=== PATIENT | female | born 1945 | race Caucasian/White ===

== ENCOUNTER → 2018-04-08 | Outpatient (CLI) | payer OTHER | END | disposition home or self-care (01) | LOC: C.RDSM 11:38 | PROVIDERS: ATTEND Physical Medicine & Rehabilitation Sports Medicine | DX: M25.561 Pain in right knee (principal); M25.562 Pain in left knee ==

== ENCOUNTER 2021-12-07 06:44 | Observation (INO) ==
--- NOTE | 2021-11-21 13:15 | PAT Medication Instructions ---
Medication Instructions Date of Service November 21, 2021 Home Medications cholecalciferol (vitamin D3) 25 mcg (1,000 unit) tablet (Vitamin D3) 25 mcg PO QPM cyanocobalamin (vitamin B-12) 1,000 mcg tablet 1,000 mcg PO QPM Take evening before surgery cholecalciferol (vitamin D3) 25 mcg (1,000 unit) tablet (Vitamin D3) 25 mcg PO QPM cyanocobalamin (vitamin B-12) 1,000 mcg tablet 1,000 mcg PO QPM Other Notes NOTHING TO EAT OR DRINK AFTER MIDNIGHT. If you have any questions please call us at [phone] or [phone] or [phone] or [phone]
--- NOTE | 2021-11-25 11:25 | Anesthesiology Consultation ---
Date of Service November 25, 2021 Assessment & Plan (1) Encounter for pre-operative examination: - Patient acceptable risk for surgery pending surgeon-ordered PCP preop evaluation ([facility] [place]; 11/29). - COVID screening: Per assessment on 11/25: Travel screen negative, no known COVID-19 positive contacts. Patient was Covid positive 09/29/21 (scanned in from [facility]) > symptoms at time: fatigue > resolved. Surgeon arranging preop COVID testing (scheduled 12/05; [place]). Awaiting results. Chart Review Chart Review: Patient seen in Pre Admission Testing Teaching & Discussion Pre-Anesthesia Teaching/Discussion Notes: Instructed NPO after midnight before surgery,except medications with 15 cc of water. Medication instructions provided according to the PAT guidelines. History Surgery Operation Date: 12/07/21 09:20 Proposed Procedures p Right Total Knee Arthroplasty - Jayro Flower MD Height/Weight Height: 5 ft 9 in Weight: 65.1 kg Allergies Allergy/AdvReac Type Severity Reaction Status Date / Time onion Allergy Severe Anaphylaxis Verified 11/21/21 11:09 Medications Home Medications Medication Instructions Recorded Confirmed Last Taken cholecalciferol (vitamin D3) 25 25 mcg PO QPM 11/21/21 11/21/21 Unknown mcg (1,000 unit) tablet (Vitamin D3) cyanocobalamin (vitamin B-12) 1,000 mcg PO QPM 11/21/21 11/21/21 Unknown 1,000 mcg tablet Past Medical History Medical History Arthritis Bladder prolapse History of COVID-19 Dx 09/29/21 (scanned in from [facility]) > symptoms at time: fatigue > resolved Presence of pessary Exercise / Class Metabolic Activity II 4-5 Yardwork/Stairs/Walk up hill (one FS (no CP, no SOB)) Past Family History Family History Mother Family history of diabetes mellitus Father Family history of diabetes mellitus Other No family history of adverse response to anesthesia Past Surgical History Surgical History H/O knee surgery LEFT History of cataract surgery RT/LEFT History of colon resection r/t complication during hysterectomy History of colonoscopy History of hysterectomy Past Anesthesia History No Hx of Anesthesia Complications and No Family Hx of Anesthesia Complications History of PONV No Hx of PONV and No Hx of Motion Sickness Social History Smoking Status: Former smoker tobacco type: cigarettes Do You Dip or Chew Tobacco: No Smoking End Date: Quit 1970 Hx Alcohol Use: No Hx Substance Use: No substance use type: does not use Review of Systems Patient denies chest pain, shortness of breath, dyspnea on exertion, fever, chills, cough, wheezing, palpitations. Physical Exam Vital Signs VITALS BP 145/81 P 60 TEMP 98.4 SP02 98%RA RESP 16 PHYSICAL Full cervical extension range of motion. Full TMJ range of motion. TMD 2.5 finger breaths (small chin) Mallampati Score 2 Dentition: intact, root canal repair on molar Lungs: clear throughout to auscultation Cardiac: regular rate and rhythm, no murmurs noted Spine: normal Carotid arteries: negative bruit Extremities: no edema Lab Results Anesthesia Preop Results Results Anesthesia Widget: WBC 4.51 K/uL (4.8-10.8) L 11/25/21 Hgb 13.5 g/dL (12.0-16.0) 11/25/21 Hct 41.1 % (37-47) 11/25/21 Plt 185 K/uL (130-400) 11/25/21 Na 140 mmol/L (136-145) 11/25/21 K 4.5 mmol/L (3.5-5.1) 11/25/21 Cl 105 mmol/L (98-107) 11/25/21 CO2 30 mmol/L (21-32) 11/25/21 BUN 13 mg/dl (6-23) 11/25/21 Creat 0.49 mg/dl (0.6-1.2) L 11/25/21 Glucose Level 100 mg/dl (70-99(Fasting)) H 11/25/21 PT 10.5 Seconds (9.0-12.0) 11/25/21 PTT 29.6 Seconds (21.0-31.0) 11/25/21 INR 1.0 (0.9-1.1) 11/25/21 Urine Color Dark Yellow 11/25/21 Urine Appearance Clear (Clear) 11/25/21 Urine pH 5.0 (4.5-7.5) 11/25/21 Urine Specific [place] 1.029 (1.000-1.030) 11/25/21 Urine Protein Negative (Negative) 11/25/21 Urine Glucose (UA) Negative (Negative) 11/25/21 Urine Ketones Trace (Negative) H 11/25/21 Urine Blood Trace (Negative) H 11/25/21 Urine Nitrite Negative (Negative) 11/25/21 Urine Bilirubin Negative (Negative) 11/25/21 Urine Urobilinogen Negative (Negative) 11/25/21 Urine Leukocyte Esterase 1+ (Negative) H 11/25/21 Urine WBC (Auto) 10-30 /hpf (0-5) H 11/25/21 Urine RBC (Auto) 0-4 /hpf (0-4) 11/25/21 Urine Hyaline Casts (Auto) 1-5 /lpf (0-5) 11/25/21 Urine Epithelial Cells (Auto) >30 /lpf (0-5) H 11/25/21 Urine Bacteria (Auto) 1+ (Negative) H 11/25/21 Urine Yeast Budding (None Prsent) A 11/25/21 Blood Type B Positive 11/25/21 Antibody Screen NEGATIVE 11/25/21 Lab Comments: Surgeon's office made aware of abnormal UA. Testing Electrocardiogram Date: 11/25/21 SB at 56bpm. NS STA. 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 Chest X-Ray Date: 11/25/21 FINDINGS: The lungs are clear. No pleural effusions. No pneumothorax. The heart is normal in size. There is a mildly tortuous thoracic aorta. Moderate right and mild left glenohumeral joint osteoarthritis. Mild to moderate degenerative changes within the thoracic spine. IMPRESSION: No acute process. Stress Test Date: 12/25/16 Type: exercise Stress echocardiogram is normal without resting LV wall motion abnormalities or inducible ischemia. Exercise EKG equivocal for ischemia. 3.1 METS. 99% MPHR. The low workload achieved reduces the sensitivity of the test for detection of coronary artery disease or ischemia. LVEF 60%. No significant valvular disease.
--- NOTE | 2021-11-28 06:37 | History & Physical Report ---
Date of Service November 28, 2021 Assessment & Plan (1) Right knee DJD: Plan: Postoperative prescriptions for Coumadin and Percocet will be provided at discharge from the hospital. Anticipate discharge to home with home health services. The patient is aware of the COVID-19 risks associated with surgery. She is currently asymptomatic of any COVID-19 symptoms. She will obtain nasal swab testing on the Sunday prior to surgery. PDMP was checked and there are no concerning findings. Prescription was provided for a rolling walker. She will meet with PAT today for her preoperative lab work, EKG, and chest x-ray. She has an appointment to see her PCP for medical clearance on Sunday. History of Present Illness Chief Complaint: Right knee pain Primary Care Provider: NO PCP This 76-year-old female presents with her , for her preoperative history and physical. She is scheduled to undergo a right knee total knee arthroplasty on 12/07/2021. The patient has had bilateral knee pain for years, right greater than left. Worse with use. Worse with weightbearing. It is affecting her ADLs. She denies any catching or locking. She does have loss of motion. She has tried conservative care measures including activity modification, oral medications, and assistive devices without improvement. She elects to proceed with surgical intervention in hopes of improving her function. Preoperative imaging has been obtained. Allergies Allergy/AdvReac Type Severity Reaction Status Date / Time onion Allergy Severe Anaphylaxis Verified 11/21/21 11:09 Home Medications Medication Instructions Recorded Confirmed Type cholecalciferol (vitamin D3) 25 25 mcg PO QPM 11/21/21 11/21/21 History mcg (1,000 unit) tablet (Vitamin D3) cyanocobalamin (vitamin B-12) 1,000 mcg PO QPM 11/21/21 11/21/21 History 1,000 mcg tablet Past Med/Surg History Medical History (Updated 11/28/21 @ 06:36 by Denny Valdez PA-C) Arthritis Bladder prolapse History of COVID-19 Dx 09/29/21 (scanned in from [facility]) > symptoms at time: fatigue > resolved Kidney stones Presence of pessary Surgical History H/O knee surgery LEFT History of cataract surgery RT/LEFT History of colon resection r/t complication during hysterectomy History of colonoscopy History of hysterectomy Family History Mother Family history of diabetes mellitus Father Family history of diabetes mellitus Other No family history of adverse response to anesthesia Social History (Updated 11/28/21 @ 06:35 by Denny Valdez PA-C) Smoking Status: Former smoker Second Hand Exposure: Yes ( A CHILD); Hx Alcohol Use: No Hx Substance Use: No Preferred Language: Guyanese Hearing Ability: Normal Composition Roll Maker And Cutter Required: No Beliefs That Will Affect Care: None marital status: Current Living Situation: Family Current Living Situation Comment: >RAISING 2 GRANDKIDS current occupational status: retired Feels Safe at Home: Yes Assistive Devices: Glasses and Hearing Aid - Bilateral Review of Systems Review of Systems: All systems reviewed & are unremarkable except as noted in HPI & below A total of 10 systems were reviewed. Physical Exam Physical Exam: Vitals: Height 159 cm, weight 65.6 kilograms, BMI 26, BP 128/82, pulse 62, O2 sat 98% on room air. General: Well-developed, well-nourished, elderly white female in no acute distress. Sitting in a chair. Alert and oriented. Skin: Warm and dry with good turgor. No rashes or lesions. No ecchymosis or erythema. No intraarticular effusion. HEENT: Normocephalic, atraumatic. Eyes: PERRLA, EOMI. Nares and oropharynx exams deferred due to COVID precautions. Heart: RRR. No MGR. Lungs: Clear to auscultation bilaterally. No crackles, rhonchi or wheezing. Good air movement. Abdomen: Bowel sounds present x4, soft, nontender. No organomegaly. No masses. Mildly obese. Musculoskeletal: Right knee evaluation reveals varus deformity. She lacks about 5 degrees of terminal extension. Flexion to 90 degrees only. Strength is 5/5 with fair quad tone. No defect in the patellar tendon or quadriceps tendon. She has focal discomfort with palpation over the medial and lateral joint lines. Her worst pain is posteriorly. Ambulating today with a slightly antalgic gait. Neurologic: Gross sensation is intact across both lower extremities by soft touch. Peripheral pulses are 2+. Results & Data Results & Data ([facility]) Diagnostic Findings Radiographic imaging previously obtained shows end-stage DJD of both knees. She is [id number] in all compartments. It is severely degenerated. Periarticular osteophytes, subchondral sclerosis, and joint space narrowing are all evident. Code Status & VTE Plan VTE Prophylaxis Plan VTE Prophylaxis will be ordered: Yes
--- NOTE | 2021-12-07 06:22 | History & Physical Bridge Note ---
Date of Service December 07, 2021 History & Physical Bridge Note I have examined the patient, reviewed the History & Physical and in the interval since the performance of the History & Physical I have noted the following changes of clinical significance:consent obtained/site verified/covid screen negative. no changes noted
[~2021-12-07 06:44] MED LIST: BUPIVACAINE 0.5 % 5 MG/1 ML PF 10ML VIAL ONE; EPINEPHrine INJ 1 MG/ML AMP ONE; LR 500ML BOLUS, THEN 15ML/HR IV SCH; LR 60ML/HR IV SCH; ROPIVACAINE 0.5% 5 MG/ML 30 ML VIAL ONE; ROPIVACAINE 0.5% HCL/PF 150 MG, BUPIVACAINE 0.75% MPF 20 ML, EPINEPHrine 0.15 MG, Ketor... INFIL SCH; TRANEXAMIC ACID 1,000 MG **IV Pre-op IV SCH; ceFAZolin 2000MG 2,000 MG/15 ML SYR IV SCH
[2021-12-07] MEDS ORDERED: PROPOFOL IV EMULSION 10 MG/ML 20 ML VIAL IV ONE ×2 (07:37→10:29)
[2021-12-07] MEDS ORDERED: LIDOCAINE 2% 2 ML VIAL/AMP(20MG/ML) INFIL ONE (07:37)
[2021-12-07] MEDS ORDERED: MIDAZOLAM HCL 1 MG/ML 2ML VIAL ONE ×2 (07:38→09:33)
[2021-12-07] MEDS ORDERED: fentaNYL citrate 100 MCG/2 ML VIAL ONE (07:38)
[2021-12-07] MEDS ORDERED: ORTHO JOINT ANESTHETIC ONE (09:13)
[2021-12-07] MEDS ORDERED: DEXAMETHASONE SOD INJ 4 MG/ML VIAL ONE (09:40)
[2021-12-07] MEDS ORDERED: ONDANSETRON INJ 2 MG/ML 2 ML VIAL ONE (09:40)
--- NOTE | 2021-12-07 11:02 | Post Operative Brief Note ---
Immediate Post Op Note v1 Date of Surgery December 07, 2021 Pre & Post Diagnosis Operation Date: 12/07/21 08:50 Pre-Op Diagnosis: Right Knee Osteoarthritis Post-Op Diagnosis: Right Knee Osteoarthritis I identified the patient and participated in the time-out.: Yes Procedure Operation Date: 12/07/21 08:50 Actual Procedures p Right Total Knee Arthroplasty, Cemented(Right) - Jayro Flower MD Surgeon Jayro Flower MD Technology Resource Teacher Carlos Eduardo/José Miguel/Vincenzo Estimated Blood Loss 25 Findings Consistent with Post-Op Diagnosis
[2021-12-07] MEDS ORDERED: ePHEDrine sulfate 50 MG/ML AMP IV PRN (11:11)
[2021-12-07] MEDS ORDERED: ONDANSETRON INJ 2 MG/ML 2 ML VIAL IV PRN ×2 (11:11→12:22)
[2021-12-07] MEDS ORDERED: PROMETHAZINE HCL 12.5 MG in SODIUM CHLORIDE 0.9% 50 ML IV PRN (11:11)
[2021-12-07] MEDS ORDERED: NALOXONE HCL 0.4 MG/1 ML VIAL/CARP IV PRN ×2 (11:11→12:22)
[2021-12-07] MEDS ORDERED: FLUMAZENIL 0.1 MG/1 ML 10 ML VIAL IV PRN (11:11)
[2021-12-07] MEDS ORDERED: HYDROmorphone INJ 1 MG/ML SYRINGE IV PRN (11:11)
[2021-12-07] MEDS ORDERED: fentaNYL citrate 100 MCG/2 ML VIAL IV PRN (11:11)
[2021-12-07] MEDS ORDERED: ATROPINE SULFATE 0.1 MG/ML 10ML SYR IV PRN (11:11)
--- NOTE | 2021-12-07 11:14 | Operative Report ---
Post Operative Report Pre & Post Diagnosis Operation Date: 12/07/21 08:50 Pre-Op Diagnosis: Right Knee Osteoarthritis Post-Op Diagnosis: Right Knee Osteoarthritis I identified the patient and participated in the time-out.: Yes Procedure Operation Date: 12/07/21 08:50 Actual Procedures p Right Total Knee Arthroplasty, Cemented(Right) - Jayro Flower MD Surgeon DANIEL Flower MD Heel Sander Rubber Carlos Eduardo/José Miguel/Vincenzo Estimated Blood Loss 25 Findings Consistent with Post-Op Diagnosis See operative report Specimens See operative report Drains None Complications none Disposition Accompanied Patient To Recovery: Yes Indications This 76-year-old female presented to the office with complaints of persisting right knee pain. She had tried conservative care measures without improvement. She elected to proceed with surgical intervention after being educated about potential risks and outcomes. Preoperative imaging was obtained. Description of Procedure Patient was administered a spinal anesthetic and then taken to the operating room where she was given sedation. She was prepped and draped in the usual sterile fashion. Please see Dr. Flower's operative report for specifics of the procedure. I was present for the entire case for initial patient positioning through final wound closure. Assistance was provided in tissue retraction, hemostasis, trial implant placement, final implant placement, and final wound closure. Patient was taken to the recovery room in satisfactory condition. I attest to the content of the Intraoperative Record and any orders documented therein. Any exceptions are noted below.
--- NOTE | 2021-12-07 11:14 | Operative Report ---
Post Operative Report Pre & Post Diagnosis Operation Date: 12/07/21 08:50 Pre-Op Diagnosis: Right Knee Osteoarthritis Post-Op Diagnosis: Right Knee Osteoarthritis I identified the patient and participated in the time-out.: Yes Procedure Operation Date: 12/07/21 08:50 Actual Procedures p Right Total Knee Arthroplasty, Cemented(Right) - Jayro Flower MD Surgeon Erum Flower MD Scout Sniper Carlos Eduardo/José Miguel/Vincenzo Estimated Blood Loss 25 Findings Consistent with Post-Op Diagnosis Consistent with post op findings Specimens No specimens Description of Procedure I participated in prepping dressing and assisted Dr. Flower during the procedure. Please see Dr. Flower note. I attest to the content of the Intraoperative Record and any orders documented therein. Any exceptions are noted below. Supervising Physician Co-Signing Physician Notes Dr. Flower
--- NOTE | 2021-12-07 11:14 | Operative Report ---
Post Operative Report Pre & Post Diagnosis Operation Date: 12/07/21 08:50 Pre-Op Diagnosis: Right Knee Osteoarthritis Post-Op Diagnosis: Right Knee Osteoarthritis I identified the patient and participated in the time-out.: Yes Procedure Operation Date: 12/07/21 08:50 Actual Procedures p Right Total Knee Arthroplasty, Cemented(Right) - Jayro Flower MD Surgeon Jayro Flower MD Hedis Abstractor Carlos Eduardo/José Miguel/Vincenzo Estimated Blood Loss 25 Findings Consistent with Post-Op Diagnosis Severe DJD varus deformity and flexion loss Fluids Per anesthesia Specimens Bone trimmings Drains None Anesthesia Type Spinal Complications None Indications 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 the right lower extremity was prepped and draped usual routine fashion. To urniquet was inflated 275 mmHg after the exsanguination all of the limb for a total of 53 minutes. Midline exposure utilized parapatellar arthrotomy performed. Synovectomy completed large osteophytes resected. The bone was soft. There was a cyst on the distal femur. This was noted at the time of the distal femoral anterior cut. Proximal tibia was then subluxated cruciates resected menisci resected the tibia was then resected 4 mm off the medial side. It was sized to a 3. Femur was sized between a 4 and a 3 was measured 4 and cut 3 to prevent overstuffing and minimize any notching and then the area of the cyst was noted. The extension gap was excellent. Flexion gap was excellent. The distal femur was cut 12 mm. Once the flexion extension gaps were noted to be excellent box cut was made and the size 3 fit well. The thickness of the size 3 and with a 12-1/2 spacer was excellent midrange stability no loss of extension and full flexion. Should be mentioned her preoperative range of motion was from near 0 to 85 degrees. There was a hard endpoint. This was all much improved. The patella was then resected leaving 14 mm and a 38 trial seated. It tracked well. Ortho mix was then injected all about the knee. The permanent implants were then cemented after the knee was irrigated with Betadine Pulsavac and the tibia femur and patella were then cemented in that order. After 12 minutes the tourniquet was deflated minor bleeding points controlled electrocautery. After 14 minutes the knee was inspected no cement removal was required. It was irrigated with Pulsavac and Betadine 1 final time department liner seated the knee reduced and closed the patella tracked well. It was closed in 30 degrees of flexion with #2 Vicryl 2-0 Vicryl in status no clips appropriate dressing applied. Summary of implant size 3 femur posterior cruciate substituting size 3 mobile- bearing tray tibia size 38 patella 3 x 25 mm polyethylene insert posterior cruciate substituting. 2 bags of [place] G cement EBL was 25 cc crystalloid per anesthesia pathology pending on bone DVT prophylaxis per protocol. Patient was probably notified site verified antibiotics current is being given consent verified. All done before the procedure started. Dictated not read I attest to the content of the Intraoperative Record and any orders documented therein. Any exceptions are noted below.
--- NOTE | 2021-12-07 11:28 | Orthopedic Progress Note ---
Date of Service December 07, 2021 Assessment & Plan (1) Right knee DJD: Plan: Continue with care pathway discharge tomorrow. (2) Encounter for pre-operative examination: Plan: Continue wound care pathway discharge tomorrow. Subjective Doing well status post right total knee replacement denies chest pain shortness of breath fever chills nausea vomiting or headache. Physical Exam Musculoskeletal: Dressing clean dry and intact neurologic exam limited by spinal postop x-rays look excellent. Results & Data ([facility]) Vital Signs (Past 12 Hours) Vital Signs Temp Pulse Resp BP Pulse Ox 12/07/21 11:25 77 18 116/62 100 12/07/21 11:15 36.3 C L 77 18 120/56 L 100 12/07/21 07:16 36.6 C 76 18 147/82 H 95 Diagnostic Findings Postop x-rays look excellent. Cystic area filled with cement.
--- NOTE | 2021-12-07 11:34 | XRay Report ---
XR knee RT 1 or 2V routine CLINICAL HISTORY: S/P R TKA TECHNIQUE: 2 views of the right knee were obtained. Comparison: Comparison is made to right knee radiographs 10/26/2021 FINDINGS: Patient is status post total knee arthroplasty with expected postsurgical changes including soft tiss ue swelling, subcutaneous emphysema, and surgical staple placement. No periarticular lucency or hardw are fracture is seen. No joint effusion is seen. No soft tissue abnormality is seen. IMPRESSION: Expected postoperative appearance status post placement of total knee arthroplasty. ACT 112: Negative or not required by law. Electronically signed by: Eleno Arias M.D. 12/07/2021 11:32 AM
--- NOTE | 2021-12-07 12:05 | Anesthesiology Progress Note ---
Date of Service December 07, 2021 Anesthesia Post Procedure Vital Signs Vital Signs: Temp Pulse Resp BP Pulse Ox 12/07/21 11:55 36.4 C L 60 16 112/65 94 12/07/21 11:45 61 16 121/73 96 12/07/21 11:35 66 17 116/72 96 12/07/21 11:25 77 18 116/62 100 12/07/21 11:15 36.3 C L 77 18 120/56 L 100 12/07/21 07:16 36.6 C 76 18 147/82 H 95 Transfer of Care Handoff Completed per policy Notes Mental Status: alert / awake / arousable Patient Amnestic to Procedure: Yes Nausea / Vomiting: adequately controlled Pain: adequately controlled Airway Patency, RR, SpO2: stable & adequate BP & HR: stable & adequate Hydration State: stable & adequate Neuraxial Anesthesia: was administered and sensory block is resolving Anesthetic Complications: no major complications apparent
[2021-12-07] MEDS ORDERED: HYDROmorphone INJ 0.5 MG/0.5 ML SYR IV PRN (12:22)
[2021-12-07] MEDS ORDERED: METOCLOPRAMIDE HCL INJ 5 MG/ML 2 ML VIAL IV PRN (12:22)
[2021-12-07] MEDS ORDERED: SODIUM CHLORIDE 0.9% 1000ML 1,000 ML IV SCH (12:22)
[2021-12-07] MEDS ORDERED: MAGNESIUM HYDROXIDE SUSP 30 ML UDC PO PRN (12:22)
[2021-12-07] MEDS ORDERED: ALUMINUM/MAGNESIUM SUSP 30 ML UDC PO PRN (12:22)
[2021-12-07] MEDS ORDERED: bisacodyL 10 MG SUPP PR PRN (12:22)
[2021-12-07] MEDS ORDERED: diphenhydrAMINE 50 MG/ML VIAL IV PRN (12:22)
[2021-12-07] MEDS ORDERED: oxyCODONE HCL IR 5 MG TAB (IMMEDIATE RELEASE) PO PRN (12:22)
[2021-12-07] MEDS ORDERED: ORTHO WARFARIN NOMOGRAM SCH (14:00)
--- NOTE | 2021-12-07 15:23 | Discharge Summary (DS) ---
DATE OF ADMISSION: 12/07/2021. DATE OF DISCHARGE: 12/08/2021. CHIEF COMPLAINT: Right knee pain. HISTORY OF PRESENT ILLNESS: Underwent elective right total knee replacement. Hospital course has be en uneventful. At this point in time, she will be discharged tomorrow after PT/OT. PAST MEDICAL AND PAST SURGICAL HISTORY: Remarkable for bladder issues, arthritis, kidney stones, his tory of pessary use, multiple knee surgeries, colonoscopies, hysterectomies, colon resection. FAMILY HISTORY: Diabetes. SOCIAL HISTORY: Reveals former smoker secondhand exposure. Positive social alcohol. REVIEW OF SYSTEMS: Noncontributory. Postop x-rays look excellent. ASSESSMENT: Doing well status post right total knee replacement. Discharge to home. Additional med ications will be p.r.n. pain medication and blood thinner. Job ID: [id number]
--- NOTE | 2021-12-07 15:40 | Progress Notes ---
DATE OF SERVICE: 12/07/2021. Status post right knee replacement, doing well. Postop x-rays look excellent. Neurovascular check is wearing off with her spinal and is starting to move her legs. Dressing clean, dry and intact. Eating and drinking well. At this point in time, Hep-Lock IV and mobilize when her legs are finally fully awake. Use knee immo bilizer for gait. Job ID: [id number]
[2021-12-07] MEDS ORDERED: WARFARIN SOD 5 MG TAB PO SCH ×2 (16:00)
[2021-12-07] MEDS ORDERED: WARFARIN SOD 5 MG TAB PO ONE (16:00)
[2021-12-07] MEDS: KETOROLAC TROMETHAMINE 15 MG/ML VIAL IV SCH ×2 (16:34→21:36)
[2021-12-07] MEDS: ASCORBIC ACID 500 MG TAB PO SCH (16:34)
[2021-12-07] MEDS: FERROUS GLUCONATE 324 MG TAB PO SCH (16:34)
[2021-12-07] MEDS: ceFAZolin 2000MG 2,000 MG/15 ML SYR IV SCH (16:40)
[2021-12-07] MEDS ORDERED: TRANEXAMIC ACID / 0.7% NACL 1,000 MG/100 ML BAG IV SCH (17:00)
[2021-12-07] MEDS ORDERED: CYANOCOBALAMIN (B-12) 500 MCG TABLET PO SCH (21:00)
[2021-12-07] MEDS ORDERED: SENNA 8.6 MG TAB PO SCH (21:00)
[2021-12-07] MEDS ORDERED: CHOLECALCIFEROL 1,000 UNITS 25 MCG TAB PO SCH (21:00)
[2021-12-07] MEDS: DOCUSATE SODIUM 100 MG CAP PO SCH (21:37)
[2021-12-07] MEDS: ACETAMINOPHEN 500 MG TAB PO SCH (21:37)
[2021-12-08] MEDS: ceFAZolin 2000MG 2,000 MG/15 ML SYR IV SCH (00:44)
[2021-12-08] MEDS: KETOROLAC TROMETHAMINE 15 MG/ML VIAL IV SCH ×2 (03:24→11:34)
[2021-12-08] MEDS: ACETAMINOPHEN 500 MG TAB PO SCH (05:59)
--- NOTE | 2021-12-08 06:26 | Progress Notes ---
SUBJECTIVE: Has done very well status post right total knee replacement, is sitting up in bed, is mo ving well, has had a good night's sleep. She states she slept well. OBJECTIVE: Examination reveals neurovascular check femoral sciatic nerve to be normal. Wound dressi ng is clean, dry and intact. Can do a straight leg raise. LABORATORY DATA: A.m. labs are pending. ASSESSMENT AND PLAN: Doing well. Discharged home today. Blood thinner dose per nomogram. Follow u p in 2 weeks. Job ID: [id number]
[2021-12-08] MEDS: FERROUS GLUCONATE 324 MG TAB PO SCH (07:24)
[2021-12-08] MEDS: ASCORBIC ACID 500 MG TAB PO SCH (07:24)
[2021-12-08] MEDS: DOCUSATE SODIUM 100 MG CAP PO SCH (07:24)
[2021-12-08 07:25] LABS: Hematocrit (blood only) 33.1 % (37-47); Mean Corpuscular Hemoglobin 28.8 pg (25-34); Mean Corpuscular Hgb Conc 33.2 g/dL (32-36); Mean Corpuscular Volume 86.6 fL (80-100); Mean Platelet Volume 11.9 fL (7.4-10.4); Platelet Count 162 K/uL (130-400); RDW Standard Deviation 44.5 fL (36.4-46.3); Red Blood Count 3.82 M/uL (4.2-5.4); White Blood Count 8.99 K/uL (4.8-10.8)
[2021-12-08 07:42] LABS: BUN Creatinine Ratio 32.7 (10-20); Calcium 8.4 mg/dl (8.5-10.1); Creatinine Clr Calc Pharmacy 77.3 ml/min; Est GFR (African American) 107.1 ml/min; Est GFR (Non-African American) 92.4 ml/min; INR 1.1 (0.9-1.1); Potassium 4.1 mmol/L (3.5-5.1); Prothrombin Time 11.9 Seconds (9.0-12.0)
[2021-12-08] MEDS ORDERED: dexAMETHasone 10 MG in SYRINGE 0 ML IV SCH (08:00)
[2021-12-08] MEDS ORDERED: MULTIVITAMIN TAB PO SCH (09:00)
--- NOTE | 2021-12-08 09:32 | Orthopedic Progress Note ---
Date of Service December 08, 2021 Assessment & Plan (1) S/P total knee replacement using cement: Plan: Patient was seen in her room by me. Dressings were changed. ALEXANDRA hose were reapplied. She will take Coumadin 4 mg daily over the weekend and have her blood rechecked on Sunday. Today's dose will be given prior to departure. Continue using her walker. Continue using the knee immobilizer until Sunday morning, at which time it may be fully discontinued. Coumadin and Percocet prescriptions were sent to her pharmacy. Written discharge instructions were provided. Follow-up in the office in 2 weeks with me as scheduled for staple removal. Admission and Anticipated Discharge Date Admission Date: December 07, 2021 Subjective Patient was seen in her room this morning. She has already eaten breakfast. She states she did well overnight. She is having minimal knee pain at this point. She is waiting for therapy and feels ready for discharge to home. She denies any chest pain, shortness of breath, nausea, vomiting, or abdominal pain. She has been out of bed. Review of Systems Review of Systems: Unchanged from yesterday. Physical Exam Physical Exam: General: Well-developed, well-nourished, elderly female, in no acute distress. Sitting in bed. Alert and oriented. Skin: Warm dry with good turgor. No rashes. Patient has an intact postsurgical dressing on the right leg. Upon removal, there is scant dried blood on her dressings. No active bleeding. Expected postoperative edema. No ecchymosis. Musculoskeletal: Patient has intact motor function of her ankle and toes. She is able to set her quad and perform straight leg raise. She has full terminal extension. Flexion to around 50 degrees easily. Neurologic: Gross sensation is intact across all aspects of the right leg by soft touch. Peripheral pulses are 2+. Results & Data ([facility]) Vital Signs (Past 12 Hours) Vital Signs Temp Pulse Resp BP BP Pulse Ox 12/08/21 07:47 36.5 C 70 16 129/76 97 12/08/21 07:21 36.5 C 65 18 129/76 97 12/08/21 03:20 36.9 C 71 16 130/74 96 12/07/21 22:49 36.9 C 69 14 102/60 95 Laboratory Results H&H this morning are 11.0 and 33.1. White count of 8.99. INR is 1.1. C hemistry panel is unremarkable. Electrolytes are normal. BUN of 18. Creatinine of 0.55, which is consistent with her usual levels.
[2021-12-08] MEDS ORDERED: WARFARIN SOD 5 MG TAB PO ONE (09:51)
== END 2021-12-08 12:15 | disposition home health service (06) ==
LOC: 3E 06:44 → ASU 06:44

== ENCOUNTER 2022-06-28 08:15 | Observation (INO) ==
--- NOTE | 2022-04-11 14:53 | Anesthesiology Consultation ---
Date of Service April 11, 2022 Assessment & Plan (1) Encounter for pre-operative examination: Abnormal UA, new leukopenia. Pt acceptable to proceed per discussion with Nick Vieira with surgeon's office made aware. - COVID screening: Per garage attendant on 04/11/2022: Travel screen negative, no kno wn COVID-19 positive contacts or current COVID-19 related symptoms in past 2 weeks. Surgeon arranging preop COVID testing, scheduled 04/17/2022. Awaiting results. Chart Review Chart Review: Acceptable Risk for Surgery and Patient NOT seen in Pre Admission Testing History Surgery Operation Date: 04/19/22 07:00 Proposed Procedures p Left Total Knee Arthroplasty - Jayro Flower MD Height/Weight Height: 5 ft 3 in Weight: 61.235 kg Allergies Allergy/AdvReac Type Severity Reaction Status Date / Time onion Allergy Severe Anaphylaxis-RAW Verified 04/11/22 14:38 ONIONS Medications Home Medications Medication Instructions Recorded Confirmed Last Taken cholecalciferol (vitamin D3) 25 25 mcg PO QPM 11/21/21 04/11/22 12/06/21 16:00 mcg (1,000 unit) tablet (Vitamin D3) cyanocobalamin (vitamin B-12) 1,000 mcg PO QPM 11/21/21 04/11/22 12/06/21 16:00 1,000 mcg tablet sulfamethoxazole 800 1 tab PO BID 04/11/22 04/11/22 Unknown mg-trimethoprim 160 mg tablet Past Medical History Medical History (Updated 04/11/22 @ 14:46 by Sonya Barahona PA-C) Bladder prolapse History of COVID-19 Dx 09/29/21 (scanned in from [facility]) > symptoms at time: fatigue > resolved Kidney stones Presence of pessary CLEANED AND REPLACED 3-4 WEEKS AGO Past Family History Family History Mother Family history of diabetes mellitus Father Family history of diabetes mellitus Other No family history of adverse response to anesthesia Past Surgical History Surgical History (Updated 04/11/22 @ 14:47 by Sonya Barahona PA-C) H/O knee surgery LEFT History of cataract surgery RT/LEFT History of colon resection r/t complication during hysterectomy History of colonoscopy History of hysterectomy History of total knee replacement RIGHT 4/6/22: SAB L3-L4 1 attempt + PNB. Social History Smoking Status: Former smoker tobacco type: cigarettes Do You Dip or Chew Tobacco: No Smoking End Date: QUIT LONG TIME AGO Hx Alcohol Use: No Hx Substance Use: No substance use type: does not use Lab Results Anesthesia Preop Results Results Anesthesia Widget: WBC 3.57 K/ul (4.8-10.8) L 04/07/22 Hgb 13.7 g/dl (12.0-16.0) 04/07/22 Hct 42.3 % (34.1-44.9) 04/07/22 Plt 192 K/uL (130-400) 04/07/22 Na 141 mmol/L (136-145) 04/07/22 K 4.2 mmol/L (3.5-5.1) 04/07/22 Cl 103 mmol/L (98-107) 04/07/22 CO2 32 mmol/L (21-32) 04/07/22 BUN 13 mg/dl (6-23) 04/07/22 Creat 0.58 mg/dl (0.6-1.2) L 04/07/22 Glucose Level 96 mg/dl (70-99(Fasting)) 04/07/22 PT 10.7 Seconds (9.0-12.0) 04/07/22 PTT 28.3 Seconds (21.0-31.0) 04/07/22 INR 1.0 (0.9-1.1) 04/07/22 Urine Color Yellow 04/07/22 Urine Appearance Cloudy (Clear) A 04/07/22 Urine pH 7.5 (4.5-7.5) 04/07/22 Urine Specific [place] 1.018 (1.000-1.030) 04/07/22 Urine Protein Trace (Negative) H 04/07/22 Urine Glucose (UA) Negative (Negative) 04/07/22 Urine Ketones Negative (Negative) 04/07/22 Urine Blood Trace (Negative) H 04/07/22 Urine Nitrite Positive (Negative) A 04/07/22 Urine Bilirubin Negative (Negative) 04/07/22 Urine Urobilinogen Negative (Negative) 04/07/22 Urine Leukocyte Esterase 3+ (Negative) H 04/07/22 Urine WBC (Auto) >30 /hpf (0-5) H 04/07/22 Urine RBC (Auto) 5-10 /hpf (0-4) H 04/07/22 Urine Hyaline Casts (Auto) 10-30 /lpf (0-5) H 04/07/22 Urine Epithelial Cells (Auto) >30 /lpf (0-5) H 04/07/22 Urine Bacteria (Auto) 4+ (Negative) H 04/07/22 Blood Type B Positive 04/07/22 Antibody Screen NEGATIVE 04/07/22 Testing Electrocardiogram Date: 04/07/22 NSR, rate 61 bpm Chest X-Ray Date: 04/07/22 PA and lateral chest radiographs are compared to study dated 11/25/2021. The cardiomediastinal silhouette is unremarkable noting atherosclerotic calcification of the thoracic aorta. Chronic interstitial thickening is similar to previous. The lungs and pleural spaces are clear. There is no pneumothorax. The skeletal structures are osteopenic. The bony thorax appears intact. Arthritic change is seen in the right shoulder and throughout the thoracic spine. Left-sided nephrolithiasis is noted in the upper abdomen. IMPRESSION: No active disease in the chest. Stress Test Date: 12/25/16 Exercise MPHR 99% METS 3 Negative for ischemia EF 60% Normal LV wall motion
--- NOTE | 2022-06-13 10:48 | History & Physical Report ---
Date of Service June 13, 2022 Assessment & Plan (1) Left knee DJD: Plan: Postoperative prescriptions for Percocet and Coumadin will be provided at discharge from the hospital. Anticipate discharge to home with home health services. She is aware of the COVID-19 risks associated with surgery. She is currently asymptomatic of any COVID-19 symptoms. She will obtain medical clearance from her PCP, Dr. Wilburn. The patient was sent for her preoperative lab work today. EKG and chest x-ray are up to date. She already has a rolling walker. Postop followup appointment has been made for 07/13/22 at 8:30 a.m. with ALEXA Bower. History of Present Illness Chief Complaint: Left knee pain Primary Care Provider: NO PCP his is a 77-year-old female who presents with her for preoperative history and physical. She is scheduled to undergo left knee total knee arthroplasty on 06/28/22. The patient was previously scheduled for the surgery 04/19/22. This was canceled due to COVID issues. She has had left knee pain for years. Worse with use. Worse with weightbearing. Pain is affecting her ADLs. She previously had a right total knee arthroplasty done 12/07/21 and has done very well with it. She elects to proceed with the same on the left. Preoperative imaging has been obtained. She notes loss of motion of the knee. She has already tried conservative care measures including activity modification, oral medications, and assistive devices without improvement. Allergies Allergy/AdvReac Type Severity Reaction Status Date / Time onion Allergy Severe Anaphylaxis-RAW Verified 04/11/22 14:38 ONIONS Home Medications Medication Instructions Recorded Confirmed Type cholecalciferol (vitamin D3) 25 25 mcg PO QPM 11/21/21 04/11/22 History mcg (1,000 unit) tablet (Vitamin D3) cyanocobalamin (vitamin B-12) 1,000 mcg PO QPM 11/21/21 04/11/22 History 1,000 mcg tablet sulfamethoxazole 800 1 tab PO BID 04/11/22 04/11/22 History mg-trimethoprim 160 mg tablet Past Med/Surg History Medical History Bladder prolapse History of COVID-19 Dx 09/29/21 (scanned in from [facility]) > symptoms at time: fatigue > resolved Kidney stones Left knee DJD Presence of pessary CLEANED AND REPLACED 3-4 WEEKS AGO Surgical History H/O knee surgery LEFT History of cataract surgery RT/LEFT History of colon resection r/t complication during hysterectomy History of colonoscopy History of hysterectomy History of total knee replacement RIGHT 12/07/21: SAB L3-L4 1 attempt + PNB. Family History Mother Family history of diabetes mellitus Father Family history of diabetes mellitus Other No family history of adverse response to anesthesia Social History Smoking Status: Former smoker Second Hand Exposure: No; Hx Alcohol Use: No Hx Substance Use: No Preferred Language: Nicaraguan Communication Ability: Effective Hearing Ability: Normal Roof Panel Hanger Required: No Beliefs That Will Affect Care: None marital status: Current Living Situation: Spouse and Family Current Living Situation Comment: >RAISING 2 GRANDKIDS AND 2 SONS current occupational status: retired Feels Safe at Home: Yes Assistive Devices: Glasses and Hearing Aid - Bilateral Review of Systems Review of Systems: All systems reviewed & are unremarkable except as noted in HPI & below Physical Exam Physical Exam: Vitals: Height 159.4 centimeters, weight 63.8 kg, BMI 25.1, temperature 36.2, BP 118/72, heart rate 70, respirations 18, O2 saturation 96% on room air. General: Well-developed, well-nourished elderly white female in no acute distress. Sitting in a chair. Alert and oriented. Skin: Warm and dry with good turgor. No rashes or lesions. No ecchymosis or erythema. No intra-articular effusion. HEENT: Normocephalic, atraumatic. Eyes: PERRLA. EOMI. Nares and oropharynx exam is deferred due to COVID precautions. Heart: RRR. No MGR. Lungs: Clear to auscultation bilaterally. No crackles, rhonchi, or wheezing. Good air movement. Abdomen: Bowel sounds present x4, soft, nontender. No organomegaly. No masses. Mild obesity. Musculoskeletal: Left knee evaluation reveals a varus deformity. She has a lack of approximately 5 degrees of terminal extension. Flexion to around 100 degrees. Strength is 5/5 with fair quad tone. She is able to perform a straight leg raise. Intact motor function of the ankle. She has focal pain with palpation over the medial joint line. No lateral joint line discomfort with palpation today. No defect in the patellar tendon or quadriceps tendon. Ambulating today with a slightly antalgic gait. Neurologic: Gross sensation is intact across both lower extremities by soft touch. Peripheral pulses are 2+. Results & Data Results & Data ([facility]) Diagnostic Findings Radiographic imaging previously obtained shows end-stage DJD of the left knee. There is [id number] presentation in the medial and patellofemoral compartments. Periarticular osteophytes, subchondral sclerosis, and joint space narrowing are all present. Code Status & VTE Plan VTE Prophylaxis Plan VTE Prophylaxis will be ordered: Yes
[~2022-06-28 08:15] MED LIST changes: -EPINEPHrine INJ 1 MG/ML AMP ONE; +LACTATED RINGER'S 500 ML IV ONE; +LR 15ML/HR IV SCH; -LR 500ML BOLUS, THEN 15ML/HR IV SCH
--- NOTE | 2022-06-28 08:20 | History & Physical Bridge Note ---
Date of Service June 28, 2022 History & Physical Bridge Note I have examined the patient, reviewed the History & Physical and in the interval since the performance of the History & Physical I have noted the following changes of clinical significance: site and consent verified.no changes noted
--- NOTE | 2022-06-28 09:01 | Discharge Summary (DS) ---
DATE OF ADMISSION: 06/28/2022. DATE OF POTENTIAL DISCHARGE: 06/29/2022 CHIEF COMPLAINT: Left knee pain. HISTORY OF PRESENT ILLNESS: Underwent elective left total knee replacement. Up to this point, hospital course has been uneventful. ALLERGIES: INCLUDE ONIONS. MEDICATIONS: Include vitamins and p.r.n. sulfa. PAST MEDICAL HISTORY: Remarkable for bladder prolapse, history of COVID-19, kidney stones, DJD of kn ees, and pessary. PAST SURGICAL HISTORY: History of multiple knee surgeries, cataract surgery, colon resection, colono scopies, hysterectomy, and right knee replacement. FAMILY HISTORY: Remarkable for diabetes. SOCIAL HISTORY: Reveals she does not smoke. She lives with her spouse and family. Wears glasses an d hearing aid. Feels safe at home. ASSESSMENT AND PLAN: Status post left total knee replacement. If does well overnight, we will disch arge to home. Resume all medications and add Coumadin for prophylaxis for deep vein thrombosis. Job ID: [id number]
[2022-06-28] MEDS ORDERED: PROPOFOL IV EMULSION 10 MG/ML 20 ML VIAL IV ONE ×2 (09:04→10:44)
[2022-06-28] MEDS ORDERED: MIDAZOLAM HCL 1 MG/ML 2ML VIAL ONE (09:04)
[2022-06-28] MEDS ORDERED: ONDANSETRON INJ 2 MG/ML 2 ML VIAL IV PRN ×2 (09:21→13:19)
[2022-06-28] MEDS ORDERED: fentaNYL citrate 100 MCG/2 ML VIAL IV PRN (09:21)
[2022-06-28] MEDS ORDERED: ePHEDrine sulfate 50 MG/ML AMP IV PRN (09:21)
[2022-06-28] MEDS ORDERED: HYDROmorphone INJ 2 MG/ML SYR/VIAL IV PRN (09:21)
[2022-06-28] MEDS ORDERED: ATROPINE SULFATE 0.1 MG/ML 10ML SYR IV PRN (09:21)
[2022-06-28] MEDS ORDERED: ORTHO JOINT ANESTHETIC ONE (10:19)
[2022-06-28] MEDS ORDERED: fentaNYL citrate 100 MCG/2 ML VIAL ONE (10:38)
[2022-06-28] MEDS ORDERED: DEXAMETHASONE SOD INJ 4 MG/ML VIAL ONE (10:44)
[2022-06-28] MEDS ORDERED: ONDANSETRON INJ 2 MG/ML 2 ML VIAL ONE (10:44)
--- NOTE | 2022-06-28 12:16 | Operative Report ---
Post Operative Report Pre & Post Diagnosis Operation Date: 06/28/22 10:50 Pre-Op Diagnosis: Bilateral Osteoarthritis of Knee Post-Op Diagnosis: Bilateral Osteoarthritis of Knee Operation Date: 08/02/22 10:50 <No data on this case meets the specified criteria> I identified the patient and participated in the time-out.: Yes Procedure Operation Date: 06/28/22 10:50 Actual Procedures p Left Total Knee Arthroplasty(Left) - Jayro Flower MD Operation Date: 08/02/22 10:50 <No data on this case meets the specified criteria> Surgeon DANIEL Flower MD Recreation Establishment Manager José Miguel MCCALLUM Estimated Blood Loss 25 Findings Consistent with Post-Op Diagnosis see operative report Specimens see operative report Drains none Complications none Disposition Accompanied Patient To Recovery: Yes Indications This 77 year old female presented to the office with complaints of persisting left knee pain. She had tried conservative care measures without improvement. She elected to proceed with surgical intervention after being educated about potential risks and outcomes. Preoperative imaging was obtained. Description of Procedure Patient was administered a spinal anesthetic and then taken to the operating room where she was given General anesthesia. She was prepped and draped in the usual sterile fashion. Please see Dr. Flower's operative report for specifics of the procedure. I was present for the entire case from initial patient positioning through final wound closure. Assistance was provided in tissue retraction, hemostasis, trial implant placement, final implant placement, and final wound closure. Patient was taken to the recovery room in satisfactory condition. I attest to the content of the Intraoperative Record and any orders documented therein. Any exceptions are noted below.
--- NOTE | 2022-06-28 12:38 | Anesthesiology Progress Note ---
Date of Service June 28, 2022 Anesthesia Post Procedure Vital Signs Vital Signs: Temp Pulse Resp BP Pulse Ox O2 Del Method O2 Flow Rate 06/28/22 12:25 81 16 140/77 100 Oxymask 2 06/28/22 12:15 36.4 C L 71 16 136/73 99 Oxymask 5 06/28/22 08:52 34.6 C L 65 20 155/78 H 100 Room Air Pain Intensity Left Knee: Pain Intensity: 0 Transfer of Care Handoff Completed per policy Notes Mental Status: alert / awake / arousable and participated in evaluation Patient Amnestic to Procedure: Yes Nausea / Vomiting: adequately controlled Pain: adequately controlled Airway Patency, RR, SpO2: stable & adequate BP & HR: stable & adequate Hydration State: stable & adequate Anesthetic Complications: no major complications apparent and Pt Satisfied with anesthetic care
--- NOTE | 2022-06-28 12:53 | Operative Report (OR) ---
DATE OF PROCEDURE: 06/28/2022. SURGEON: Jayro Flower MD. MEDICAL RECORD ADMINISTRATOR: Denny Valdez PA-C. No resident or fellow available. PREOPERATIVE DIAGNOSES: Osteoarthritis with severe deformity, left knee. POSTOPERATIVE DIAGNOSES: Osteoarthritis with severe deformity, left knee. OPERATION PERFORMED: Cemented left total knee replacement. SUMMARY OF IMPLANTS: DePuy J and J rotating platform size 3 left femur posterior cruciate substituting size 3 mobile bearing tray, size 38 patella, size 3 x 20 insert, posterior cruciate substituting. PERIOPERATIVE SITUATION: Medically cleared female with intractable pain. Has a severe deformity, flexion contracture and stiffness. Her range of motion preoperatively is like 10 degrees to 60 degrees. She has varus deformity almost fixed. DESCRIPTION OF PROCEDURE: The patient was appropriately identified, site verified, consent verified. Antibiotics were confirmed as being given. The left lower extremity was prepped and draped in usual routine fashion. A midline exposure was utilized after the tourniquet was inflated to 300 mmHg for exsanguination of the limb for a total of approximately 57 minutes. Midline exposure utilized. Parapatellar arthrotomy performed. There was huge osteophytes along the entire extensor mechanism, patella and trochlea. These were all excised. The internal release was then performed to get the patella to beth. Once that was performed, Synovectomy was completed. The knee was then able to be flexed about 100 degrees. Exposure was obtained and some release performed on the posterior medial tibia and the anterolateral tibia. There was a huge osteophyte off the anterior tibia, which was resected. The intercondylar notch was completely obliterated and filled with bone. It was carved out and the PCL found and released. The ACL was absent. There were huge osteophytes posteriorly that required removal before flexion gap could be assessed.. Once that was done carefully, there were huge pieces of bone that could be felt. The femur was then resected 14 mm, the tibia 4 mm, and then huge pieces came out from behind the knee. The extension gap required at least 17 mm. The femur was then sized between a 4 and a 3, was measured 4, cut 3. There was no notching. The flexion gap was then 17.5-20. Once this was all released appropriately, the extension gap was then rechecked in the 20, and 20 looked extremely well. Box cut was then made, the size 3 fit well. The tibia was then broached and reamed to a 3 and a size 20 spacer fit. Everything tracked well. The patella was then resected by hand due to its deformity, leaving 15 mm. Seating holes made for a 38 patella that tracked well. Orthomix was then injected all about the knee. Trial implants were then removed. The knee soaked in Betadine for several minutes and then after irrigating clean, the permanent cemented in position; tibia, femur, and patella in that order. At 12 minutes, the tourniquet released. Minor bleeding encountered. At 14 minutes, the knee flexed. No cement removal required. The trial spacer was removed. The permanent spacer seated. The knee reduced and closed at 40 degrees of flexion using #2 Vicryl, 2-0 Vicryl and stainless steel clips. Appropriate dressing applied. The patient was transferred to recovery room in satisfactory condition, having tolerated the procedure well. Pathology pending on bone. DVT prophylaxis per protocol with Coumadin. Full weightbearing. Job ID: [id number] [facility]
[2022-06-28] MEDS ORDERED: diphenhydrAMINE 50 MG/ML VIAL IV PRN (13:19)
[2022-06-28] MEDS ORDERED: oxyCODONE HCL IR 5 MG TAB (IMMEDIATE RELEASE) PO PRN (13:19)
[2022-06-28] MEDS ORDERED: SODIUM CHLORIDE 0.9% 1000ML 1,000 ML IV SCH (13:19)
[2022-06-28] MEDS ORDERED: NALOXONE HCL 0.4 MG/1 ML VIAL/CARP IV PRN (13:19)
[2022-06-28] MEDS ORDERED: ALUMINUM/MAGNESIUM SUSP 30 ML UDC PO PRN (13:19)
[2022-06-28] MEDS ORDERED: bisacodyL 10 MG SUPP PR PRN (13:19)
[2022-06-28] MEDS ORDERED: METOCLOPRAMIDE HCL INJ 5 MG/ML 2 ML VIAL IV PRN (13:19)
[2022-06-28] MEDS ORDERED: HYDROmorphone INJ 0.5 MG/0.5 ML SYR IV PRN (13:19)
[2022-06-28] MEDS ORDERED: VANCOMYCIN CONSULT ACTIVE PRN (13:19)
[2022-06-28] MEDS ORDERED: MAGNESIUM HYDROXIDE SUSP 30 ML UDC PO PRN (13:19)
--- NOTE | 2022-06-28 13:21 | Progress Notes ---
DATE OF SERVICE: 06/28/2022. SUBJECTIVE: Postop check status post left total knee replacement. At this point in time, the patien t is doing well. Denies chest pain, shortness of breath, fever, chills, nausea, vomiting or headache . VITAL SIGNS: Stable. She is afebrile. Neurovascular check is patchy based on partial spinal in the face of general as well. Wound dressing clean, dry and intact. IMAGING: X-rays, AP and lateral view revealed excellent alignment. ASSESSMENT: Overall doing well. Continue care pathway. Discharge to home if she does well jose m olson Job ID: [id number]
[2022-06-28] MEDS ORDERED: ORTHO WARFARIN NOMOGRAM SCH (14:00)
[2022-06-28] MEDS ORDERED: VANCOMYCIN HCL 1,000 MG in SODIUM CHLORIDE 0.9% 250 ML IV ONE (14:00)
--- NOTE | 2022-06-28 14:33 | XRay Report ---
XR knee LT 1 or 2V routine CLINICAL HISTORY: post op total knee COMPARISON: Knee radiographs January 23, 2022. FINDINGS: Alignment of the total left knee arthroplasty is anatomic. There is no periprosthetic frac ture or unexpected radiopaque foreign body. There are skin rl. IMPRESSION: Expected findings following total left knee arthroplasty. ACT 112: Negative or not required by law. Electronically signed by: Gavin Cary M.D. 06/28/2022 2:32 PM
[2022-06-28] MEDS: KETOROLAC TROMETHAMINE 15 MG/ML VIAL IV SCH ×2 (14:51→20:13)
[2022-06-28] MEDS: ACETAMINOPHEN 500 MG TAB PO SCH ×2 (14:53→20:15)
[2022-06-28] MEDS ORDERED: WARFARIN SOD 5 MG TAB PO SCH (16:00)
[2022-06-28] MEDS: FERROUS GLUCONATE 324 MG TAB PO SCH (17:02)
[2022-06-28] MEDS: ASCORBIC ACID 500 MG TAB PO SCH (17:02)
[2022-06-28] MEDS: ceFAZolin 2000MG 2,000 MG/15 ML SYR IV SCH (18:01)
[2022-06-28] MEDS ORDERED: TRANEXAMIC ACID / 0.7% NACL 1,000 MG/100 ML BAG IV SCH (18:30)
[2022-06-28] MEDS: DOCUSATE SODIUM 100 MG CAP PO SCH (20:14)
[2022-06-28] MEDS ORDERED: SENNA 8.6 MG TAB PO SCH (21:00)
[2022-06-29] MEDS: ceFAZolin 2000MG 2,000 MG/15 ML SYR IV SCH (01:12)
[2022-06-29] MEDS: KETOROLAC TROMETHAMINE 15 MG/ML VIAL IV SCH ×2 (01:12→07:51)
[2022-06-29] MEDS: ACETAMINOPHEN 500 MG TAB PO SCH (04:42)
[2022-06-29 06:32] LABS: Hematocrit (blood only) 29.5 % (34.1-44.9); Mean Corpuscular Hgb Conc 33.9 g/dL (32.0-36.0); Mean Corpuscular Volume 85.5 fL (80.0-100.0); Mean Platelet Volume 12.1 fL (9.4-12.3); Platelet Count 162 K/uL (130-400); RDW Coefficient of Variation 13.6 % (11.5-14.5); RDW Standard Deviation 42.8 fL (36.4-46.3); Red Blood Count 3.45 M/uL (3.93-5.22); White Blood Count 8.78 K/ul (4.8-10.8)
[2022-06-29 06:37] LABS: INR 1.1 (0.9-1.1); Prothrombin Time 12.1 Seconds (9.0-12.0)
[2022-06-29 07:02] LABS: BUN Creatinine Ratio 33.3 (10-20); Calcium 8.2 mg/dl (8.5-10.1); Creatinine Clr Calc Pharmacy 80.5 ml/min; Est GFR (Non-African American) 92.3 ml/min; Potassium 4.5 mmol/L (3.5-5.1)
--- NOTE | 2022-06-29 07:06 | Progress Notes ---
DATE OF SERVICE: 06/29/2022. SUBJECTIVE: Doing well status post left total knee replacement. She denies any chest pain, shortnes s of breath, fever, chills, nausea, vomiting or headache. OBJECTIVE: Vital signs are stable. She is afebrile. Wound dressing clean, dry and intact. Neurovascular check, femoral sciatic nerve is normal. Can do straight leg raise. LABORATORY DATA: Hematocrit stable at 29.2. INR pending. ASSESSMENT AND PLAN: Doing well. Continue with discharge plans for today after dressing change and PT. Followup in 2 weeks for staple removal. Advised considering bending the knee based on the stiff ness she had preop, which was flexion only to about 70 degrees with a 20-degree flexion contracture. Job ID: [id number]
[2022-06-29] MEDS: FERROUS GLUCONATE 324 MG TAB PO SCH (07:53)
[2022-06-29] MEDS: ASCORBIC ACID 500 MG TAB PO SCH (07:53)
[2022-06-29] MEDS: DOCUSATE SODIUM 100 MG CAP PO SCH (07:53)
[2022-06-29] MEDS ORDERED: dexAMETHasone 10 MG in SYRINGE 0 ML IV SCH (08:00)
[2022-06-29] MEDS ORDERED: MULTIVITAMIN TAB PO SCH (09:00)
--- NOTE | 2022-06-29 09:55 | Orthopedic Progress Note ---
Date of Service June 29, 2022 Assessment & Plan (1) S/P total knee replacement using cement: Plan: Patient was seen in her room this morning. Her dressing was changed by me. Continue with ice and elevation. Discharge to home after PT/OT this morning. She will start home health over the weekend. Continue using a walker when ambulating. She will use the knee immobilizer today and tomorrow, and discontinue its use on Sunday morning. Prescriptions for Percocet and Coumadin 2mg were sent to her pharmacy. Follow-up in the office in 2 weeks as scheduled for staple removal. Written discharge instructions were provided. Admission and Anticipated Discharge Date Admission Date: June 28, 2022 Subjective Patient is seen in her room this morning. She is sitting up. She has finished breakfast. She denies any chest pain, shortness of breath, nausea, vomiting, abdominal pain, or headache. She feels ready for discharge to home. She has minimal knee pain at this point. No other complaints. Review of Systems Review of Systems: Unchanged from yesterday. Physical Exam Physical Exam: General: Well-developed, well-nourished, elderly female, in no acute distress. Sitting in bed. Alert and oriented. Skin: Warm dry with good turgor. No rashes. Postsurgical dressings are in place. Upon removal, she has scant dried blood on the inner dressings. There is no active bleeding at this time. Wound edges are well approximated. [place] are in place. Expected postoperative edema. No ecchymosis. Musculoskeletal: Patient has intact motor function of her left ankle, knee, and hip. She is able to perform a straight leg raise. She has full terminal extension. Flexion to around 50 degrees. Neurologic: Gross sensation is intact across the left leg by soft touch. Peripheral pulses are 2+. Results & Data ([facility]) Vital Signs (Past 12 Hours) Vital Signs Temp Pulse Pulse Resp BP Pulse Ox O2 Del Method 06/29/22 07:17 36.4 C L 68 14 95/59 L 96 Room Air 06/29/22 04:00 36.7 C 75 16 98/59 L 96 Room Air 06/29/22 00:00 36.5 C 63 16 103/62 94 Room Air Laboratory Results CBC obtained today shows a white count of 8.78. H&H 10.0 and 29.5. Platelets 162,000. INR 1.1. PRP is unremarkable. 0.54 is consistent with her baseline.
[2022-06-29] MEDS ORDERED: ORTHO WARFARIN NOMOGRAM SCH (14:00)
== END 2022-06-29 10:35 | disposition home health service (06) ==
LOC: ASU 08:15 → PACUINP 08:15 → 3E 14:12
DX: Z91.018 Allergy to other foods; Z87.891 Personal history of nicotine dependence; M17.12 Unilateral primary osteoarthritis, left knee; Z96.0 Presence of urogenital implants; Z86.16 Personal history of COVID-19